=== PATIENT | female | born 1955 | race Caucasian/White ===

== ENCOUNTER 2017-12-08 21:23 | Inpatient (IN) ==
[2017-12-08] MEDS ORDERED: LORazepam 1 MG Tablet PO ONE (21:40)
--- NOTE | 2017-12-08 21:46 | ED ---
HPI General Chief Complaint: Psychiatric Symptoms Stated Complaint: anxiety/pysch symptoms Time Seen by Provider: 12/08/17 21:36 Source: patient Mode of arrival: ambulatory Limitations: no limitations History of Present Illness HPI Narrative: Patient is a 62-year-old female with history of depression and chronic pain and anxiety; presents to the emergency room for evaluation of suicidal thoughts. Patient reports that she is on medications for chronic pain as well as for depression and anxiety, she stopped taking all her medications 5- 6 months ago as she did not want to be addicted to drugs. Patient reports that for the past week, she has been hearing voices. Patient reports that the voices are telling her to hurt herself in various ways. Reports that 2 days ago , the voices told her to hang herself with a blanket. Patient reports that this voices are getting stronger and she actively feels suicidal. Reports no history of suicide attempts in the past, patient is here seeking help. Patient reports no use of any drugs or any alcohol, no attempt or suicide today MD complaint: Reports suicidal ideation and feels depressed Onset (ago): week(s) Duration: constant History of same: Yes Relieving factors: none Exacerbating factors: medication Context: Reports not taking psychiatric medications Associated psychiatric symptoms: Reports depression, suicidal ideation, racing thoughts and auditory hallucinations Associated symptoms: Reports denies other symptoms Treatments prior to arrival: Reports none If self harm: admits thoughts of self harm and has plan Related Data Home Medications Medication Instructions Recorded Confirmed Unable to Obtain Home Meds 12/08/17 12/08/17 Allergies Allergy/AdvReac Type Severity Reaction Status Date / Time No Known Allergies Allergy Unverified 12/08/17 21:37 Review of Systems ROS: all other systems reviewed are negative PMFSH History History Provided By: Patient Medical History Medical History Anxiety (Acute) Chronic pain (Acute) Depression (Acute) Surgical History Surgical History No history of previous surgery (Acute) Social History Social History Substance History: No History of Abuse Smoking Status: Current every day smoker Tobacco Type: Cigarettes How Often Do You Have a Drink Containing Alcohol: Never Recent Travel in [facility] within the Last 8 Weeks: No Recent Out of Country Travel within the Last 8 Weeks: No Exam Narrative Exam Narrative: GENERAL: NAD SKIN: Focused skin assessment warm/dry. HEAD: Atraumatic. Normocephalic. EYES: Pupils equal and round. No scleral icterus. No injection or drainage. ENT: No nasal bleeding or discharge. Mucous membranes pink and moist. NECK: Trachea midline. No JVD. There are no carotid bruits, no bruising or abrasions to her neck CARDIOVASCULAR: Regular rate and rhythm. No murmur appreciated. RESPIRATORY: No accessory muscle use. Clear to auscultation. Breath sounds equal bilaterally. GASTROINTESTINAL: Abdomen soft, non-tender, nondistended. Hepatic and splenic margins not palpable. MUSCULOSKELETAL: No obvious deformities. No clubbing. No cyanosis. No edema. NEUROLOGICAL: Awake and alert. No obvious cranial nerve deficits. Motor grossly within normal limits. Normal speech. PSYCHIATRIC: Anxious mood and affect; +SI Course Initial Documented Vital Signs Temperature 98.1 F 12/08/17 21:39 Pulse Rate 72 12/08/17 21:39 Respiratory Rate 16 12/08/17 21:39 Blood Pressure 166/96 H 12/08/17 21:39 Pulse Oximetry 97 12/08/17 21:39 Last Documented Vital Signs Temperature 98.1 F 12/08/17 21:39 Pulse Rate 72 12/08/17 21:39 Respiratory Rate 16 12/08/17 21:39 Blood Pressure 166/96 H 12/08/17 21:39 Pulse Oximetry 97 12/08/17 21:39 Medical Decision Making MDM Narrative Medical decision making narrative: Psychiatric screening labs were ordered, once medically cleared, patient will go over to [facility] for psychiatric evaluation. Patient presents to the ER voluntarily, patient will need to be under a Claire act if she decides to leave the emergency room Medical Screen Exam Complete: Yes Emergency Medical Condition: Yes Differential Diagnosis Differential Diagnosis: Depression, anxiety reaction, suicidal ideation, medication noncompliance Medical Records Medical records reviewed: Yes I reviewed the patient's medical records. Lab Data Result diagrams: 12/08/17 21:55 12/08/17 21:55 Lab Results 12/08/17 12/08/17 12/08/17 Range/Units 21:55 21:55 21:55 CBC w Diff Auto diff final WBC 7.8 (4.0-11.0) th/mm3 RBC 4.66 (4.00-5.30) mil/mm3 Hgb 15.6 H (11.6-15.3) gm/dL Hct 44.6 (35.0-46.0) % MCV 95.8 (80.0-100.0) fL MCH 33.6 (27.0-34.0) pg MCHC 35.0 (32.0-36.0) % RDW 12.9 (11.6-17.2) % Plt Count 381 (150-450) th/mm3 MPV 7.9 (7.0-11.0) fL Neut % (Auto) 61.9 (16.0-70.0) % Lymph % (Auto) 29.3 (9.0-44.0) % Menard % (Auto) 4.1 (0.0-8.0) % Eos % (Auto) 1.2 (0.0-4.0) % Baso % (Auto) 3.5 H (0.0-2.0) % Neut # (Auto) 4.8 (1.8-7.7) th/mm3 Lymph # (Auto) 2.3 (1.0-4.8) th/mm3 Menard # (Auto) 0.3 (0.0-0.9) th/mm3 Eos # (Auto) 0.1 (0.0-0.4) th/mm3 Baso # (Auto) 0.3 H (0.0-0.2) th/mm3 WBC Differential . Differential Comment . Sodium 141 (136-145) meq/L Potassium 3.9 (3.5-5.1) meq/L Chloride 109 H (98-107) meq/L Carbon Dioxide 22.4 (21.0-32.0) meq/L Anion Gap 10 (5-15) meq/L BUN 15 (7-18) mg/dL Creatinine 0.77 (0.50-1.00) mg/dL Estimated GFR 76 L (>89) mL/min Random Glucose 98 (74-106) mg/dL Calcium 8.5 (8.5-10.1) mg/dL Total Bilirubin 0.3 (0.2-1.0) mg/dL AST 13 L (15-37) U/L ALT 16 (10-53) U/L Alkaline Phosphatase 51 (45-117) U/L Total Protein 7.6 (6.4-8.2) g/dL Albumin 3.9 (3.4-5.0) g/dL TSH 1.030 (0.358-3.740) uIU/mL Salicylates 5.7 (2.8-20.0) mg/dL Urine Opiates Screen (Neg) Acetaminophen Less than 2.0 L (10.0-30.0) mcg/mL Ur Barbiturates Screen (Neg) Ur Amphetamines Screen (Neg) U Benzodiazepines Scrn (Neg) Urine Cocaine Screen (Neg) U Cannabinoids Screen (Neg) Serum Alcohol Less than 3 (0-5) mg/dL 12/08/17 Range/Units 22:24 CBC w Diff WBC (4.0-11.0) th/mm3 RBC (4.00-5.30) mil/mm3 Hgb (11.6-15.3) gm/dL Hct (35.0-46.0) % MCV (80.0-100.0) fL MCH (27.0-34.0) pg MCHC (32.0-36.0) % RDW (11.6-17.2) % Plt Count (150-450) th/mm3 MPV (7.0-11.0) fL Neut % (Auto) (16.0-70.0) % Lymph % (Auto) (9.0-44.0) % Menard % (Auto) (0.0-8.0) % Eos % (Auto) (0.0-4.0) % Baso % (Auto) (0.0-2.0) % Neut # (Auto) (1.8-7.7) th/mm3 Lymph # (Auto) (1.0-4.8) th/mm3 Menard # (Auto) (0.0-0.9) th/mm3 Eos # (Auto) (0.0-0.4) th/mm3 Baso # (Auto) (0.0-0.2) th/mm3 WBC Differential Differential Comment Sodium (136-145) meq/L Potassium (3.5-5.1) meq/L Chloride (98-107) meq/L Carbon Dioxide (21.0-32.0) meq/L Anion Gap (5-15) meq/L BUN (7-18) mg/dL Creatinine (0.50-1.00) mg/dL Estimated GFR (>89) mL/min Random Glucose (74-106) mg/dL Calcium (8.5-10.1) mg/dL Total Bilirubin (0.2-1.0) mg/dL AST (15-37) U/L ALT (10-53) U/L Alkaline Phosphatase (45-117) U/L Total Protein (6.4-8.2) g/dL Albumin (3.4-5.0) g/dL TSH (0.358-3.740) uIU/mL Salicylates (2.8-20.0) mg/dL Urine Opiates Screen Neg (Neg) Acetaminophen (10.0-30.0) mcg/mL Ur Barbiturates Screen Neg (Neg) Ur Amphetamines Screen Neg (Neg) U Benzodiazepines Scrn Neg (Neg) Urine Cocaine Screen Neg (Neg) U Cannabinoids Screen Neg (Neg) Serum Alcohol (0-5) mg/dL Discharge Plan Discharge Disposition Patient Disposition: [place] [facility] [place] Condition Condition: Stable Discharge Details Diagnosis: Suicidal ideation, Acute anxiety Physicians Team ED Provider: Zoey Gomez Primary Care Provider: Black Shin Rxs /Orders / Referrals /Forms Prescriptions: No Action Unable to Obtain Home Meds RF: 0 Status ED Status: Medically Cleared
[2017-12-08 22:03] LABS: Baso # (Auto) 0.3 th/mm3 (0.0-0.2); Baso % (Auto) 3.5 % (0.0-2.0); Eos # (Auto) 0.1 th/mm3 (0.0-0.4); Eos % (Auto) 1.2 % (0.0-4.0); Hematocrit 44.6 % (35.0-46.0); Hemoglobin 15.6 gm/dL (11.6-15.3); Lymph # (Auto) 2.3 th/mm3 (1.0-4.8); Lymph % (Auto) 29.3 % (9.0-44.0); Mean Corpuscular Hemoglobin 33.6 pg (27.0-34.0); Mean Corpuscular Volume 95.8 fL (80.0-100.0); Mean Platelet Volume 7.9 fL (7.0-11.0); Mono # (Auto) 0.3 th/mm3 (0.0-0.9); Mono % (Auto) 4.1 % (0.0-8.0); Neut # (Auto) 4.8 th/mm3 (1.8-7.7); Neut % (Auto) 61.9 % (16.0-70.0); Platelet Count 381 th/mm3 (150-450); Red Blood Count 4.66 mil/mm3 (4.00-5.30); Red Cell Distribution Width 12.9 % (11.6-17.2); White Blood Count 7.8 th/mm3 (4.0-11.0)
[2017-12-08 22:10] LABS: Chloride 109 meq/L (98-107); Potassium 3.9 meq/L (3.5-5.1); Sodium 141 meq/L (136-145)
[2017-12-08 22:14] LABS: Calcium 8.5 mg/dL (8.5-10.1)
[2017-12-08 22:15] LABS: Albumin 3.9 g/dL (3.4-5.0); Anion Gap 10 meq/L (5-15); Blood Urea Nitrogen 15 mg/dL (7-18); Carbon Dioxide 22.4 meq/L (21.0-32.0); Glucose,Random 98 mg/dL (74-106)
[2017-12-08 22:18] LABS: Alanine Aminotransferase 16 U/L (10-53); Aspartate Aminotransferase 13 U/L (15-37); Glomerular Filtration Rate 76 mL/min (>89)
[2017-12-08 22:20] LABS: Total Protein 7.6 g/dL (6.4-8.2)
[2017-12-08 22:21] LABS: Alkaline Phosphatase 51 U/L (45-117)
[2017-12-08 22:39] LABS: Amphetamine Screen,Urine Neg (Neg); Barbiturate Screen,Urine Neg (Neg); Cannabinoid Screen,Urine Neg (Neg); Cocaine Screen,Urine Neg (Neg)
[2017-12-08 22:46] LABS: Opiate Screen,Urine Neg (Neg)
[2017-12-09] MEDS ORDERED: LORazepam 1 MG Tablet PO ONE (14:32)
[2017-12-09] MEDS ORDERED: Acetaminophen 500 MG Tablet PO ONE (14:32)
[2017-12-09] MEDS ORDERED: Aluminum/Magnesium/Simethacone Susp 30 ML UDC PO PRN (22:11)
[2017-12-09] MEDS ORDERED: Acetaminophen 325 MG Tablet PO PRN (22:11)
[2017-12-10 08:59] LABS: Calcium 8.6 mg/dL (8.5-10.1); Carbon Dioxide 25.4 meq/L (21.0-32.0)
[2017-12-10 09:03] LABS: Chol/HDL Ratio 3.9 Ratio; HDL Cholesterol 45.1 mg/dL (40.0-60.0)
[2017-12-10] MEDS ORDERED: Aluminum/Magnesium/Simethacone Susp 30 ML UDC PO PRN (11:00)
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
[2017-12-10] MEDS: Escitalopram 10 MG Tablet PO SCH (11:46)
[2017-12-10] MEDS: QUEtiapine 25 MG Tablet PO SCH ×2 (15:35→20:53)
[2017-12-10] MEDS: Ibuprofen 600 MG Tablet PO SCH (15:35)
[2017-12-10 16:20] LABS: Hemoglobin A1c 5.4 % (4.3-6.0)
--- NOTE | 2017-12-10 16:20 | P.CON ---
History of Present Illness Service: [facility] Consult date: 12/10/17 Requesting Physician: Franklin Sen Reason for Consult: Consult for chronic pain Primary Care Provider: Black Shin MD Chief Complaint: "I am tired" History of Present Illness: Patient is a 62-year-old female with past medical history of chronic pain, anxiety who initially came into the hospital for suicidal ideation. She is now admitted to inpatient psychiatry unit for further evaluation. Consulted for assistance with chronic pain. Patient seen and examined today. Reports she is doing well. States she is really tired. Denies any suicidal ideation, homicidal ideation. States that she has no other medical issues. States that she has chronic pain on her neck and her back but she does not want any pain medications from it. She is been off of her pain medication 6 months ago. She denies any hallucination visual or auditory. Denies pain and discomfort. Denies SOB/ dyspnea. Denies chest pain, palpitations, headaches, dizziness. Denies fevers, chills, n/v/d. Denies dysuria. Review of Systems All other systems reviewed negative except as stated in [facility] - History History Provided By: Patient, Medical Record - Medical History Medical History: Medical History (Last Reviewed 12/10/17 @ 16:44 by WILI Linares) Anxiety Chronic pain Depression - Surgical History Surgical History: Surgical History (Last Reviewed 12/10/17 @ 16:44 by WILI Linares) No history of previous surgery - Family History Family History: Family History (Last Reviewed 12/10/17 @ 16:44 by WILI Linares) Other Depression Suicide - Social History I have reviewed the patient's Social History: Yes - Tobacco History Second Hand Smoke Exposure: No Tobacco Use In Past 30 Days: Yes Smoking Status: Heavy tobacco smoker Tobacco Type: Cigarettes - Alcohol History How Often Do You Have a Drink Containing Alcohol: Never - Substance Use History Substance History: No History of Abuse - Travel History Recent Travel in the [place] Within the Last 8 Weeks: No Recent Travel Out of the Country Within the Last 8 Weeks: No - Immunization History Tetanus Immunization: >5 Years Medications and Allergies Active Medications: Active Medications Al Hydrox/Mg Hydrox/Simethicone (Mag-Al Plus Susp Liq) 30 ml PO Q6H PRN PRN Reason: DYSPEPSIA Al Hydroxide/Mg Hydroxide (Milk Of Anastasia Parrish) 30 ml PO Q12H PRN PRN Reason: Mild Constipation Diphenhydramine HCl (Benadryl) 50 mg PO HS PRN PRN Reason: INSOMNIA Escitalopram Oxalate (Lexapro) 10 mg PO DAILY [facility] Last Admin: 12/10/17 11:46 Dose: 10 mg Hydroxyzine HCl (Atarax) 50 mg PO Q6H PRN PRN Reason: ANXIETY Last Admin: 12/10/17 11:47 Dose: 50 mg Ibuprofen (Motrin) 600 mg PO Q8HR [facility] Last Admin: 12/10/17 15:35 Dose: 600 mg Nicotine (Habitrol 21 Mg Patch.24 Hr) 1 patch T-DERMAL DAILY [facility] Last Admin: 12/10/17 11:47 Dose: Not Given Patch Removal (Remove Old Patch) 1 each T-DERMAL HS [facility] Last Admin: 12/10/17 02:02 Dose: 1 each Quetiapine Fumarate (Seroquel) 25 mg PO BID@08,16 [facility] Last Admin: 12/10/17 15:35 Dose: 25 mg Quetiapine Fumarate (Seroquel) 50 mg PO [facility] Allergies Allergy/AdvReac Type Severity Reaction Status Date / Time No Known Allergies Allergy Unverified 12/08/17 21:37 Home Medications Medication Instructions Recorded Confirmed Type Unable to Obtain Home Meds 12/08/17 12/08/17 History Physical Exam Vital signs: Vital Signs 12/09/17 17:38 12/09/17 22:11 12/10/17 06:29 Temperature 98.1 F 98.4 F 98.3 F Pulse Rate 57 L 60 58 L Respiratory Rate 18 18 16 Blood Pressure 144/70 H 134/72 100/58 L Pulse Oximetry 99 98 98 12/10/17 10:04 Temperature Pulse Rate Respiratory Rate 16 Blood Pressure Pulse Oximetry Intake & Output 12/09/17 12/10/17 12/10/17 18:59 06:59 18:59 Intake Total 120 / 120 Balance 120 / 120 Weight 62.8 kg Intake: Oral 120 / 120 Other: # Voids 1 Weight On Admission 62.8 kg Narrative: GENERAL: This is a well-nourished, well-developed patient, in no apparent distress. SKIN: Warm and dry. Pale HEENT: Normocephalic. Pupils equal round and reactive. Nose without bleeding. Airway patent. NECK: Trachea midline. CARDIOVASCULAR: Regular rate and rhythm without murmurs, gallops, or rubs. RESPIRATORY: Clear to auscultation. Breath sounds equal bilaterally. No wheezes , rales, or rhonchi. GASTROINTESTINAL: Abdomen soft, non-tender, nondistended. Bowel Sounds normoactive x4. MUSCULOSKELETAL: Extremities without clubbing, cyanosis, or edema. NEUROLOGICAL: Drowsy. No focal neuro deficit. Moves all extremities. Normal speech. Assessment and Plan - Plan Patient is a 62-year-old female with past medical history of chronic pain, anxiety who initially came into the hospital for suicidal ideation. She is now admitted to inpatient psychiatry unit for further evaluation. Consulted for assistance with chronic pain. Depression, suicidal ideation -Managed by psychiatry team Chronic pain -E-FORCSE Prescription Drug Monitoring Database has been queried and verified , patient was following Dr. Mckeon and outpatient prior and has been given oxycodone 10/325. Last prescription was done in March 2017 for the amount of 16 tablets only. Appears to have been weaned off of her pain medications. -Currently patient does not seek any pain medications. Ibuprofen as needed -We will not give any narcotic medications for now Tobacco use -Counseled. Nicotine patch DVT prop, ambulatory Thank you for this consultation. Stable from Hospitalist standpoint. We will sign off. Reconsult as needed. Thank you. Code Status: Full code Discussed Condition With: Patient, nursing Discharge Planning: DC disposition by primary team
[2017-12-11] MEDS: Ibuprofen 600 MG Tablet PO SCH ×4 (01:10→20:17)
[2017-12-11] MEDS: Escitalopram 10 MG Tablet PO SCH (08:59)
[2017-12-11] MEDS: QUEtiapine 25 MG Tablet PO SCH ×3 (08:59→20:17)
--- NOTE | 2017-12-11 12:52 | P.TTN ---
- Patient Problems Problems: 1. Discharge planning 2. Medication compliance 3. Knowledge deficit 4. Lack of coping skills - Progress Toward Goals Provider Present: Dr. Janina Sen, Dr. Aislinn Hollis Provider Input: 12/1017: remain for further stabilization Nurse(s) Present: Yusuf FLANNERYhealth club attendant Counselors Present: Jen Tatum [facility] Psychiatric Therapist Input: 12/10/17: Remain for further stabilization Group Spec/RT/OT/FENG Present: [facility] Spec/RT/OT/FENG Input: 12/10/17: New admission - Documentation Teaching Recipient: Patient
--- NOTE | 2017-12-11 15:56 | P.PNPSY ---
Subjective Remarks: Patient seen in her room with nurse abdoulaye and medical student Wilmer, chart reviewed, patient compliant medication. Patient calm cooperative now denies suicidality homicidality voice or visions. There is been communication with patient's family. There were refer to come home. We will consider discharge tomorrow if patient's daughter willing to pick her up tomorrow Review of Systems All other systems reviewed negative except as stated in HPI Mental Status Examination Appearance: Appropriate Consciousness: Alert Orientation: x4 Motor Activity: Normal gait Speech: Unremarkable Language: Adequate Fund of Knowledge: Adequate Attention and Concentration: Adequate Memory: Unremarkable Mood: Sad (Improved) Affect: Other (Decreased range and intensity) Thought Process & Associations: Intact Thought Content: Appropriate Hallucination Type: Auditory (Denies at this time) Delusion Type: None Suicidal Ideation: No Suicidal Plan: No (Vague related to auditory hallucinations) Suicidal Intention: No Homicidal Ideation: No Homicidal Plan: No Homicidal Intention: No Insight: Adequate Judgment: Adequate Assessment and Plan - Assessment (1) Major depressive disorder, recurrent, severe with psychotic features Code(s): F33.3 - Major depressive disorder, recurrent, severe with psychotic symptoms Status: Acute - Plan Plan: Patient's mood improving, psychosis is resolving, consider discharge tomorrow Justification for Continued Inpatient Stay: At this time patient would decompensate a place to a lower level of care Discharge Planning: To be determined Request Healthcare Surrogate/Guardian Advocate?: No
[2017-12-12] MEDS: Ibuprofen 600 MG Tablet PO SCH ×2 (03:24→08:27)
[2017-12-12 05:51] VITALS: BP 113/59; PULSE 50; RESP 16; TEMP 97.8; O2SAT 95
[2017-12-12] MEDS: QUEtiapine 25 MG Tablet PO SCH (08:22)
[2017-12-12] MEDS: Escitalopram 10 MG Tablet PO SCH (08:22)
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
== END 2017-12-12 12:25 | disposition home or self-care (01) ==
LOC: PHED 21:23 → NEDA 12-09 19:21 → H250 12-09 21:55
PROVIDERS: ADMIT Psychiatry & Neurology Psychiatry; ATTEND Psychiatry & Neurology Psychiatry